=== PATIENT | female | born 1995 | race Caucasian/White ===

== ENCOUNTER 2017-02-05 03:20 | Emergency (ER) | payer BC ==
[2017-02-05 03:31] VITALS: TEMP 97.5
[2017-02-05] MEDS ORDERED: NS 1,000 ML IV ONE (03:36)
[2017-02-05] MEDS ORDERED: ONDANSETRON 4 MG/2 ML VIAL IVP ONE (03:36)
--- NOTE | 2017-02-05 03:48 | EDPHY ---
H & P Stated Complaint: TOO MUCH ETOH TONIGHT - Personal History Current Tetanus/Diphtheria Vaccine: Yes Current Tetanus Diphtheria and Acellular Pertussis (TDAP): Yes - Medical/Surgical History Hx Asthma: No Hx Chronic Respiratory Disease: No Hx Diabetes: No Hx Cardiac Disease: No Hx Renal Disease: No Hx Cirrhosis: No Hx Alcoholism: No Hx HIV/AIDS: No Hx Splenectomy or Spleen Trauma: No Other PMH: DENIES - Social History Smoking Status: Never smoked Time Seen by Provider: 02/05/17 03:32 HPI/ROS: Chief Complaint: Alcohol intoxication, vomiting HPI: 21-year-old female who was found at home intoxicated. Patient passed out after vomiting. Is unable to ambulate on their own. Patient brought in by EMS for further evaluation. No obvious signs of trauma per EMS. Remainder of history is unobtainable secondary to the patient's intoxication. ROS: Unobtainable secondary to the patient's intoxication PMH: Unknown Medications: Unknown Allergies: Unknown Social History: Positive for alcohol Family History: non-contributory Physical Exam: Gen: Somnolent, responds to painful stimuli, maintaining airway, smells of alcohol and emesis HEENT: Atraumatic Nose: no epistaxis or deformity Eyes: PERRLA, EOMI Mouth: Moist mucosa Neck: Supple, no step-offs or deformity Chest: Atraumatic, lungs clear to auscultation Heart: S1, S2 normal, no murmur Abd: Soft, non-tender, no guarding Back: Atraumatic Ext: no edema, atraumatic Skin: no rash Neuro: Sensation grossly intact, Strength 5/5 in bilateral upper and lower extremities (Corky Winkler) Constitutional: Initial Vital Signs Temperature (C) 36.4 C 02/05/17 03:20 Heart Rate 104 H 02/05/17 03:20 Respiratory Rate 20 02/05/17 03:20 Blood Pressure 110/68 02/05/17 03:20 O2 Sat (%) 97 02/05/17 03:20 O2 Delivery Mode Room Air Allergies/Adverse Reactions: No Known Allergies Allergy (Unverified 02/05/17 03:30) Home Medications: Medication Instructions Recorded NK [No Known Home Meds] 02/05/17 Medical Decision Making ED Course/Re-evaluation: 0700 patient is sleeping. Has not yet ambulated in the emergency department. I have signed her out to Dr. Love pending ambulation and reassessment. (PetersonCorky Antwon) Re-evaluation 8:50 a.m.. Patient is now ambulatory. Patient has no complaints. [place] [employer] will transport the patient to [facility] (Jian Love) Differential Diagnosis: This appears to be alcohol intoxication without sequelae or injury. (Jian Love) - Data Points Medications Given: Discontinued Medications Sodium Chloride (Ns) 1,000 mls @ 0 mls/hr IV ONCE ONE PRN Reason: Wide Open Stop: 02/05/17 03:37 Last Admin: 02/05/17 03:48 Dose: 1,000 mls Ondansetron HCl (Zofran) 4 mg IVP EDNOW ONE Stop: 02/05/17 03:37 Last Admin: 02/05/17 03:49 Dose: 4 mg Departure - Departure Disposition: Home, Routine, Self-Care Clinical Impression: Alcoholic intoxication Condition: Good Instructions: Alcohol Intoxication (ED) Additional Instructions: Please try to avoid binge drinking alcohol. Drink plenty of fluids and stay hydrated. Tylenol and Advil for headache and hang over. Recheck in 1 day if not improving Referrals: Patient,NotPresent [Unknown] - As per Instructions [facility] [Clinic] - 1 day, if not improved
[2017-02-05 07:30] VITALS: RESP 16
[2017-02-05 08:55] VITALS: BP 121/83; PULSE 90; O2SAT 96
== END 2017-02-05 09:06 | disposition home or self-care (01) ==
DX: F10.129 Alcohol abuse with intoxication, unspecified (principal)
CPT/HCPCS: 96374

== ENCOUNTER 2018-08-18 03:57 | Emergency (ER) | payer BC ==
--- NOTE | 2018-08-18 04:26 | EDPHY ---
H & P Stated Complaint: rectal pain since fri Time Seen by Provider: 08/18/18 04:10 HPI/ROS: Chief Complaint: Rectal pain HPI: 23-year-old woman who has a history of long-standing constipation began having rectal pain the last day. Patient noticed a lump in her rectal area which is new. She has history of intermittent diarrhea and constipation, especially when she is under stress. She is currently under final exams at the [facility]. Has been doing a lot of straining to have a bowel movement. Is not currently on any medications for her constipation. No similar episodes in the past. No traumatic injuries or foreign bodies. No fevers or chills. No abdominal pain. No vaginal discharge or bleeding. Last menstrual period cycle was in April. She is on a long-acting contraceptive. ROS: 10 systems were reviewed and were negative except those elements noted in the HPI. PMH: Herpes Social History: No smoking, occasional alcohol, occasional marijuana Family History: non-contributory Physical Exam: Gen: Awake, Alert, No Distress HEENT: Nose: no rhinorrhea Eyes: PERRLA, EOMI Mouth: Moist mucosa Neck: Supple, no JVD Chest: nontender, lungs clear to auscultation Heart: S1, S2 normal, no murmur Abd: Soft, non-tender, no guarding Rectal: Nurse Ama cameron, patient has an engorged external hemorrhoid, does not not appear thrombosed Back: no CVA tenderness, no midline tenderness Ext: no edema, non-tender Skin: no rash Neuro: CN II-XII intact, Sensation grossly intact, Strength 5/5 in bilateral upper and lower extremities - Personal History LMP (Females 10-55): Irregular Current Tetanus/Diphtheria Vaccine: Unsure Current Tetanus Diphtheria and Acellular Pertussis (TDAP): Unsure - Medical/Surgical History Hx Asthma: No Hx Chronic Respiratory Disease: No Hx Diabetes: No Hx Cardiac Disease: No Hx Renal Disease: No Hx Cirrhosis: No Hx Alcoholism: No Hx HIV/AIDS: No Hx Splenectomy or Spleen Trauma: No Other PMH: DENIES - Social History Smoking Status: Never smoked Constitutional: Initial Vital Signs Temperature (C) 36.5 C 08/18/18 03:59 Heart Rate 110 H 08/18/18 03:59 Respiratory Rate 18 08/18/18 03:59 Blood Pressure 131/83 H 08/18/18 03:59 O2 Sat (%) 97 08/18/18 03:59 O2 Delivery Mode Room Air Allergies/Adverse Reactions: No Known Allergies Allergy (Unverified 02/05/17 03:30) Home Medications: Medication Instructions Recorded Hydrocortisone Acetate [Anucort-Hc] 25 mg RC BID #28 supp.rect 08/18/18 Taytulla 1 mg-20 Mcg Capsule 08/18/18 Valtrex 08/18/18 Medical Decision Making ED Course/Re-evaluation: 23-year-old with a history of constipation now with rectal hemorrhoids. Does not appear thrombosed at this time. Will treat topically, referral to general surgery. Departure - Departure Disposition: Home, Routine, Self-Care Clinical Impression: Hemorrhoids, Constipation Condition: Good Instructions: Hemorrhoids (ED) Additional Instructions: Soak frequently in a warm tub to treat your hemorrhoids. You may apply topical hydrocortisone ointment twice a day. Follow-up with General surgery in 1-2 weeks if symptoms are not improving. Increase the fiber in your diet, either through increasing high-fiber fruits and vegetables or adding a fiber supplement like Metamucil. Make sure to drink plenty of water every day. You may take MiraLax daily according to package instructions. If you feel constipated drink 1/2 bottle of magnesium citrate. Wait 1-2 hours. If you do not have a bowel movement after that time drink the 2nd half of the bottle. If you continues to be constipated you may use a Fleet's enema, available over- the-counter. Referrals: Erich Pabon MD [Medical Doctor] - As per Instructions Prescriptions: Hydrocortisone Acetate [Anucort-Hc] 25 mg RC BID #28 supp.rect
[2018-08-18 04:42] VITALS: BP 110/75
== END 2018-08-18 04:35 | disposition home or self-care (01) ==
DX: K64.9 Unspecified hemorrhoids (principal); K59.00 Constipation, unspecified

== ENCOUNTER 2018-09-22 11:54 | Emergency (ER) | payer BC | END 2018-09-22 15:08 | disposition home or self-care (01) ==